=== PATIENT | male | born 1995 | race Caucasian/White ===

== ENCOUNTER 2022-09-06 15:43 | Outpatient (CLI) | payer OTHER | END 2022-09-06 23:59 | disposition critical access hospital (66) | LOC: EMS 15:43 | DX: H55.00 Unspecified nystagmus (principal); R11.2 Nausea with vomiting, unspecified; R42 Dizziness and giddiness | CPT/HCPCS: A0425; A0427 ==

== ENCOUNTER 2022-09-06 16:16 | Emergency (ER) | payer OTHER ==
[2022-09-06] MEDS ORDERED: MECLIZINE 12.5 MG TABLET PO STA (16:28)
--- NOTE | 2022-09-06 16:31 | ED Physician Documentation ---
History of Present Illness - Stated complaint Stated Complaint: DIZZY - Chief complaint Chief Complaint: Neuro - History obtained from History obtained from: Patient - History of Present Illness Timing: Today Pain level max: 0 Pain level now: 0 - Additonal information Additional information: 26-year-old male presents to the emergency department with sudden onset of dizziness today. He states that it feels like the room is spinning around him. Worse with turning his head to the left. Better with lying still. Has had nausea and vomiting as well. Feels similar to prior episodes of vertigo. No headache. No trauma. No other focal neurological deficits. No vision changes. No recent illnesses. Review of Systems Constitutional: denies: Fever, Chills Respiratory: denies: Cough Skin: denies: Rash Musculoskeletal: denies: Neck pain, Back pain Neurologic: denies: Focal weakness, Numbness, Headache, Head injury PD PAST MEDICAL HISTORY - Past Medical History Past Medical History: No - Past Surgical History Past Surgical History: No - Present Medications Home Medications: Ambulatory Orders Medication Instructions Recorded Confirmed Meclizine HCl [Motion Sickness] 25 mg PO Q6H PRN #30 tablet 09/06/22 Ondansetron Odt [Zofran] 4 mg TL Q6H PRN #10 tablet 09/06/22 Promethazine [Phenergan] 25 mg PO Q6H PRN #10 tab 09/06/22 - Allergies Allergies/Adverse Reactions: Allergies Allergy/AdvReac Type Severity Reaction Status Date / Time No Known Drug Allergies Allergy Verified 09/06/22 16:35 - Living Situation Living Situation: reports: With family Living Arrangement: reports: At home - Family History Family history: reports: Non contributory PD ED PE NORMAL - Vitals Vital signs reviewed: Yes - General General: Alert and oriented X 3, No acute distress - HEENT HEENT: Atraumatic, PERRL, EOMI, Ears normal, Moist mucous membranes, Other (Positive nystagmus to the left, horizontal. Normal visual gonzalez. Normal vision) - Neck Neck: Supple, no meningeal sign, No bony TTP, No JVD, No bruit - Cardiac Cardiac: RRR, No murmur, Strong equal pulses - Respiratory Respiratory: No respiratory distress, Clear bilaterally - Abdomen Abdomen: Soft, Non tender, Non distended - Back Back: No spinal TTP - Derm Derm: Warm and dry - Extremities Extremities: No edema - Neuro Neuro: Alert and oriented X 3, tuberculosis specialist 2-12 intact, No motor deficit, No sensory deficit, Normal speech, Other (Positive Hallpike to the left) Eye Opening: Spontaneous Motor: Obeys Commands Verbal: Oriented GCS Score: 15 - Psych Psych: Normal mood, Normal affect Results - Vitals Vitals: Vital Signs - 24 hr 09/06/22 09/06/22 09/06/22 16:25 17:10 17:40 Temperature 36.8 C Heart Rate 59 L 72 87 Respiratory 16 11 L 15 Rate Blood Pressure 143/68 H 139/80 H 127/76 O2 Saturation 100 100 100 09/06/22 18:28 Temperature Heart Rate 60 Respiratory 15 Rate Blood Pressure 134/76 H O2 Saturation 100 Oxygen O2 Source Room air PD Medical Decision Making - ED course Complexity details: reviewed results, re-evaluated patient, considered differential, d/w patient ED course: 26-year-old male with vomiting and what appears to be BPPV. No evidence of central etiology. No rotary nystagmus. No focal neurological deficits. Was given Phenergan and meclizine. Vomiting resolved. Dizziness decreased. We will place on meclizine and antiemetics for home. We will have him follow-up with his doctor for further care. NIH stroke scale of 0. No indication for emergent neuroimaging. No fevers or headache. Similar to prior episodes of vertigo. Patient counseled regarding signs and symptoms for which I believe and urgent re-evaluation would be necessary. Patient with good understanding of and agreement to plan and is comfortable going home at this time This document was made in part using voice recognition software. While efforts are made to proofread this document, sound alike and grammatical errors may occur. Departure - Departure Disposition: Home, Self Care Clinical Impression: BPPV (benign paroxysmal positional vertigo) Qualifiers: Laterality: left Qualified Code(s): H81.12 - Benign paroxysmal vertigo, left ear Condition: Good Instructions: ED BPV Vertigo Follow-Up: your,doctor in 1 week [Other] Prescriptions: Meclizine HCl [Motion Sickness] 25 mg PO Q6H PRN #30 tablet PRN Reason: Dizziness Promethazine [Phenergan] 25 mg PO Q6H PRN #10 tab PRN Reason: Nausea / Vomiting Ondansetron Odt [Zofran] 4 mg TL Q6H PRN #10 tablet PRN Reason: Nausea / Vomiting Comments: You have benign paroxysmal positional vertigo. You can try the Sonny maneuver or half somersault maneuver at home to see if this can help reposition the otoliths in your ear. Please follow-up with your doctor for further care. Return if you worsen. There are videos on YouTube for the Sonny maneuver and half somersault maneuver. Your left ear is affected. Your prescription was sent to [facility] in [place] Discharge Date/Time: 09/06/22 18:29
[2022-09-06] MEDS ORDERED: PROMETHAZINE INJ 25 MG in SODIUM CHLORIDE 0.9% 50 ML IV STA (16:56)
[2022-09-06] MEDS ORDERED: SODIUM CHLORIDE 0.9% 1,000 ML IV STA (16:57)
[2022-09-06 18:29] VITALS: BP 134/76
== END 2022-09-06 18:29 | disposition home or self-care (01) ==
LOC: ED 16:16
DX: H81.12 Benign paroxysmal vertigo, left ear (principal)
CPT/HCPCS: 96365; 99283; 99284; A9270; J7040